=== PATIENT | female | born 1990 | race American Indian/Alaskan Native ===

== ENCOUNTER 2018-04-23 18:47 | Emergency (ER) | payer MEDICAID ==
--- NOTE | 2018-04-23 20:47 | Emergency Department Report ---
Chief Complaint: Abdominal Pain Stated Complaint: ABD PAIN/EXTREME Time Seen by Provider: 04/23/18 20:45 - HPI History of Present Illness: suprapubic abdominal cramping (+) nausea clear vaginal discharge no vomiting, no urinary sx pt is sexually active, states she uses protection MSE screening note: Focused history and physical exam performed. Due to findings the following was ordered: UA, wet prep, G/C urine ED Disposition for MSE Condition: Stable Instructions: Abdominal Pain (ED)
--- NOTE | 2018-04-23 22:14 | Emergency Department Report ---
ED Female HPI - General Chief complaint: Abdominal Pain Stated complaint: ABD PAIN/EXTREME Time Seen by Provider: 04/23/18 20:45 Source: patient Mode of arrival: Ambulatory Limitations: No Limitations - History of Present Illness Initial comments: This is a 27-year-old Nepalese female who presents with abdominal cramping in vaginal discharge for several weeks. Patient reports discharge is clear and increased in amount over the past few days. She also reports some nausea without vomiting. Her last menstrual period was 03/27/2018, a 0. She denies urinary frequency, urgency, dysuria, pelvic pain, low back pain, or vaginal bleeding. MD Complaint: vaginal discharge, pelvic pain Location: suprapubic Radiation: non-radiating Severity: moderate Severity scale (0 -10): 3 Quality: cramping Consistency: intermittent Improves with: none Worsens with: none Are you Now?: No Last Menstrual Period: 03/27/18 EDC: 01/01/19 Associated Symptoms: vaginal discharge, abdominal pain. denies: vaginal bleeding, nausea/vomiting, fever/chills, headaches, loss of appetite, dysuria, hematuria, rash, seizure, shortness of breath, syncope, weakness - Related Data Sexually active: Yes : 3 Para: 3 A: 0 Previous Rx's Medication Instructions Recorded Last Taken Type Famotidine [Pepcid] 20 mg PO BID #40 tablet 05/15/15 Unknown Rx Hyoscyamine Subl [Levsin Sl 0.125 0.125 mg SL Q6HR PRN #15 tab 05/15/15 Unknown Rx TAB] Promethazine [Phenergan TAB] 25 mg PO Q6HR PRN #20 tab 05/15/15 Unknown Rx Sulfamethoxazole/Trimethoprim 1 each PO BID #14 tablet 05/15/15 Unknown Rx [Bactrim DS TAB] Sulfamethoxazole/Trimethoprim 1 each PO BID #6 tablet 04/23/18 Unknown Rx [Bactrim DS TAB] metroNIDAZOLE [Metronidazole] 500 mg PO BID #14 tablet 04/23/18 Unknown Rx Allergies Allergy/AdvReac Type Severity Reaction Status Date / Time No Known Allergies Allergy Verified 04/23/18 18:50 ED Review of Systems ROS: Stated complaint: ABD PAIN/EXTREME Other details as noted in HPI Constitutional: denies: chills, fever Respiratory: denies: cough, shortness of breath, wheezing Cardiovascular: denies: chest pain, palpitations Gastrointestinal: abdominal pain, nausea. denies: vomiting, diarrhea Genitourinary: discharge. denies: urgency, dysuria Musculoskeletal: denies: back pain, joint swelling, arthralgia Skin: denies: rash, lesions Neurological: denies: headache, weakness, paresthesias Psychiatric: denies: anxiety, depression ED Past Medical Hx - Past Medical History Previous Medical History?: No - Surgical History Past Surgical History?: No - Social History Smoking Status: Never Smoker Substance Use Type: None - Medications Home Medications: Home Medications Medication Instructions Recorded Confirmed Last Taken Type Famotidine [Pepcid] 20 mg PO BID #40 tablet 05/15/15 Unknown Rx Hyoscyamine Subl [Levsin Sl 0.125 0.125 mg SL Q6HR PRN #15 tab 05/15/15 Unknown Rx TAB] Promethazine [Phenergan TAB] 25 mg PO Q6HR PRN #20 tab 05/15/15 Unknown Rx Sulfamethoxazole/Trimethoprim 1 each PO BID #14 tablet 05/15/15 Unknown Rx [Bactrim DS TAB] Sulfamethoxazole/Trimethoprim 1 each PO BID #6 tablet 04/23/18 Unknown Rx [Bactrim DS TAB] metroNIDAZOLE [Metronidazole] 500 mg PO BID #14 tablet 04/23/18 Unknown Rx ED Physical Exam - General Limitations: No Limitations General appearance: alert, in no apparent distress - Respiratory Respiratory exam: Present: normal lung sounds bilaterally. Absent: respiratory distress - Cardiovascular Cardiovascular Exam: Present: regular rate, normal rhythm. Absent: systolic murmur, diastolic murmur, rubs, gallop - GI/Abdominal GI/Abdominal exam: Present: soft, normal bowel sounds. Absent: distended, tenderness, guarding, rebound, rigid, organomegaly, mass, bruit, pulsatile mass - External exam: Present: normal external exam Speculum exam: Present: vaginal discharge (malodorous yellowish discharge). Absent: erythema, cervical discharge, vaginal bleeding, foreign body, tissue, laceration Bi-manual exam: Present: normal bi-manual exam - Back Exam Back exam: Absent: CVA tenderness (R), CVA tenderness (L) - Neurological Exam Neurological exam: Present: alert, oriented X3 - Psychiatric Psychiatric exam: Present: normal affect, normal mood - Skin Skin exam: Present: warm, dry, intact, normal color. Absent: rash ED Course Vital Signs 04/23/18 20:49 Temperature 98.1 F Pulse Rate 69 Respiratory 14 Rate Blood Pressure 120/54 O2 Sat by Pulse 100 Oximetry ED Medical Decision Making - Lab Data Lab Results 04/23/18 Range/Units 22:08 Urine Color Roxy (Yellow) Urine Turbidity Slightly-cloudy (Clear) Urine pH 6.0 (5.0-7.0) Ur Specific [place] 1.030 (1.003-1.030) Urine Protein 30 mg/dl (Negative) mg/dL Urine Glucose (UA) Neg (Negative) mg/dL Urine Ketones Tr (Negative) mg/dL Urine Blood Neg (Negative) Urine Nitrite Pos (Negative) Urine Bilirubin Neg (Negative) Urine Urobilinogen < 2.0 (<2.0) mg/dL Ur Leukocyte Esterase Tr (Negative) Urine WBC (Auto) 6.0 (0.0-6.0) /HPF Urine RBC (Auto) 1.0 (0.0-6.0) /HPF U Epithel Cells (Auto) 4.0 (0-13.0) /HPF Urine Bacteria (Auto) 1+ (Negative) /HPF Urine Mucus 3+ /HPF Urine HCG, Qual Negative (Negative) - Medical Decision Making This is a 27-year-old -N[place]alese female who presents with abdominal cramping and vaginal discharge for several weeks. Patient was examined by me. Vitals are stable and in no acute distress. Obtained a urinalysis, urine preg natalia test, wet prep and gonorrhea and chlamydia via pelvic exam. Urine set is negative, urine positive for acute cystitis, wet prep positive for clue cells and negative Trichomonas and yeast. Patient will be treated for bacterial vaginitis and acute cystitis. Start metronidazole and Bactrim. Instructed to follow-up in 3-5 days for pending gonorrhea and chlamydia results. Discharged home in stable condition. Discussed prevention options. F/U with PCP or Health Department. Critical care attestation.: If time is entered above; I have spent that time in minutes in the direct care of this critically ill patient, excluding procedure time. ED Disposition Clinical Impression: Bacterial vaginitis, Vaginal discharge, Pelvic pain Acute cystitis Qualifiers: Hematuria presence: without hematuria Qualified Code(s): N30.00 - Acute cystitis without hematuria Disposition: DC-01 TO HOME OR SELFCARE Is pt being admited?: No Does the pt Need Aspirin: No Condition: Stable Instructions: Abdominal Pain (ED), Bacterial Vaginosis (ED), Urinary Tract Infection in Women (ED) Additional Instructions: Increase fluid intake to 1L to 2L daily. Complete full course of antibiotics as prescribed. Avoid drinking alcohol while taking antibiotics and for 24 hours after completion. Follow up with primary care provider in 2-3 days. Prescriptions: Sulfamethoxazole/Trimethoprim [Bactrim DS TAB] 1 each PO BID #6 tablet metroNIDAZOLE [Metronidazole] 500 mg PO BID #14 tablet Referrals: NEHA SELF MD [Primary Care Provider] - 3-5 Days [facility] [Outside] - 3-5 Days [facility] [Outside] - 3-5 Days Forms: STI Treatment and Prevention Time of Disposition: 23:12
[2018-04-23 22:40] LABS: Bacteria,Urine 1+ /HPF (Negative); Bilirubin,Urine NEG (Negative); Blood,Urine NEG (Negative); Color,Urine Amber (Yellow); Mucus,Urine 3+ /HPF; Urobilinogen,Urine < 2.0 mg/dL (<2.0)
[2018-04-23 22:44] LABS: HCG Qualitative,Urine Negative (Negative)
[2018-04-23 23:27] VITALS: BP 115/70
== END 2018-04-23 23:26 | disposition home or self-care (01) ==
LOC: ED 18:47
DX: N76.0 Acute vaginitis (principal); N30.00 Acute cystitis without hematuria
CPT/HCPCS: 81001; 81025; 87210; 87591

== ENCOUNTER 2020-06-27 14:49 | Emergency (ER) | payer MEDICAID | END 2020-06-28 03:15 | disposition left against medical advice (07) | LOC: ED 14:49 | DX: M54.2 Cervicalgia (principal); Z53.21 Procedure and treatment not carried out due to patient leaving prior to being seen by health care provider ==

== ENCOUNTER 2020-10-20 13:04 | Emergency (ER) | payer SELFPAY ==
[2020-10-20 13:35] VITALS: BP 120/71
--- NOTE | 2020-10-20 15:41 | Emergency Department Report ---
ED Female HPI - General Chief complaint: Abdominal Pain Stated complaint: DISCHARGE, ABDOM PAIN, NO APPETITE Time Seen by Provider: 10/20/20 14:32 Source: patient Mode of arrival: Ambulatory Limitations: No Limitations - History of Present Illness Initial comments: Patient is a 29-year-old female presents emergency room complaints of vaginal discharge that began 2 weeks ago. She states that it is a clear discharge without an odor. She denies any vaginal itching or burning. She states that she is also been suprapubic abdominal pressure. She denies any dysuria, fever, nausea, vomiting, diarrhea, back pain. Patient states that she has not been sexually active in 3 months and denies any concerns for STDs. No past medical history. No allergies to medications. She states her last menstrual cycle was at the beginning of October. - Related Data Previous Rx's Medication Instructions Recorded Last Taken Type Famotidine [Pepcid] 20 mg PO BID #40 tablet 05/15/15 Unknown Rx Hyoscyamine Subl [Levsin Sl 0.125 0.125 mg SL Q6HR PRN #15 tab 05/15/15 Unknown Rx TAB] Promethazine [Phenergan TAB] 25 mg PO Q6HR PRN #20 tab 05/15/15 Unknown Rx Sulfamethoxazole/Trimethoprim 1 each PO BID #14 tablet 05/15/15 Unknown Rx [Bactrim DS TAB] Ondansetron [Zofran Odt] 4 mg PO Q8HR PRN #12 tab.rapdis 04/23/18 Unknown Rx Sulfamethoxazole/Trimethoprim 1 each PO BID #6 tablet 04/23/18 Unknown Rx [Bactrim DS TAB] metroNIDAZOLE [Metronidazole] 500 mg PO BID #14 tablet 04/23/18 Unknown Rx Fluconazole [Diflucan TAB] 150 mg PO QDAY 1 Days #3 tablet 10/20/20 Unknown Rx cephALEXin [Keflex] 500 mg PO BID 7 Days #14 capsule 10/20/20 Unknown Rx metroNIDAZOLE [Flagyl] 500 mg PO BID 7 Days #14 tab 10/20/20 Unknown Rx Allergies Allergy/AdvReac Type Severity Reaction Status Date / Time No Known Allergies Allergy Verified 10/20/20 13:30 ED Review of Systems ROS: Stated complaint: DISCHARGE, ABDOM PAIN, NO APPETITE Other details as noted in HPI Comment: All other systems reviewed and negative ED Past Medical Hx - Past Medical History Previous Medical History?: No - Surgical History Past Surgical History?: No - Social History Smoking Status: Never Smoker Substance Use Type: None - Medications Home Medications: Home Medications Medication Instructions Recorded Confirmed Last Taken Type Famotidine [Pepcid] 20 mg PO BID #40 tablet 05/15/15 Unknown Rx Hyoscyamine Subl [Levsin Sl 0.125 0.125 mg SL Q6HR PRN #15 tab 05/15/15 Unknown Rx TAB] Promethazine [Phenergan TAB] 25 mg PO Q6HR PRN #20 tab 05/15/15 Unknown Rx Sulfamethoxazole/Trimethoprim 1 each PO BID #14 tablet 05/15/15 Unknown Rx [Bactrim DS TAB] Ondansetron [Zofran Odt] 4 mg PO Q8HR PRN #12 tab.rapdis 04/23/18 Unknown Rx Sulfamethoxazole/Trimethoprim 1 each PO BID #6 tablet 04/23/18 Unknown Rx [Bactrim DS TAB] metroNIDAZOLE [Metronidazole] 500 mg PO BID #14 tablet 04/23/18 Unknown Rx Fluconazole [Diflucan TAB] 150 mg PO QDAY 1 Days #3 tablet 10/20/20 Unknown Rx cephALEXin [Keflex] 500 mg PO BID 7 Days #14 capsule 10/20/20 Unknown Rx metroNIDAZOLE [Flagyl] 500 mg PO BID 7 Days #14 tab 10/20/20 Unknown Rx ED Physical Exam - General Limitations: No Limitations General appearance: alert, in no apparent distress - Head Head exam: Present: atraumatic, normocephalic - Eye Eye exam: Present: normal appearance - ENT ENT exam: Present: mucous membranes moist - Respiratory Respiratory exam: Present: normal lung sounds bilaterally. Absent: respiratory distress, wheezes, rales, rhonchi, stridor, chest wall tenderness, accessory muscle use, decreased breath sounds, prolonged expiratory - Cardiovascular Cardiovascular Exam: Present: regular rate, normal rhythm, normal heart sounds. Absent: systolic murmur, diastolic murmur, rubs, gallop - GI/Abdominal GI/Abdominal exam: Present: soft, tenderness (mild suprapubic ), normal bowel sounds. Absent: distended, guarding, rebound, rigid - Neurological Exam Neurological exam: Present: alert, oriented X3 - Psychiatric Psychiatric exam: Present: normal affect, normal mood - Skin Skin exam: Present: warm, dry, intact ED Course Vital Signs 10/20/20 13:29 Temperature 98.1 F Respiratory 19 Rate Blood Pressure 120/71 ED Medical Decision Making - Lab Data Lab Results 10/20/20 Range/Units 15:51 Urine Color Yellow (Yellow) Urine Turbidity Clear (Clear) Urine pH 6.0 (5.0-7.0) Ur Specific [place] 1.033 H (1.003-1.030) Urine Protein 30 mg/dl (Negative) mg/dL Urine Glucose (UA) Neg (Negative) mg/dL Urine Ketones 20 (Negative) mg/dL Urine Blood Lg (Negative) Urine Nitrite Neg (Negative) Urine Bilirubin Neg (Negative) Urine Urobilinogen 2.0 (<2.0) mg/dL Ur Leukocyte Esterase Neg (Negative) Urine WBC (Auto) < 1.0 (0.0-6.0) /HPF Urine RBC (Auto) > 182.0 (0.0-6.0) /HPF U Epithel Cells (Auto) 2.0 (0-13.0) /HPF Urine Mucus 3+ /HPF Urine HCG, Qual Negative (Negative) - Medical Decision Making Patient is a 29-year-old female presents emergency room complaints of vaginal discharge that began 2 weeks ago. She states that it is a clear discharge without an odor. She denies any vaginal itching or burning. She states that she is also been suprapubic abdominal pressure. She denies any dysuria, fever, nausea, vomiting, diarrhea, back pain. Patient states that she has not been sexually active in 3 months and denies any concerns for STDs. No past medical history. No allergies to medications. She states her last menstrual cycle was at the beginning of October. On exam patient has mild suprapubic tenderness palpation, no guarding, no rebound, no rigidity, no process, no peritoneal signs. Urine is negative. UA shows many red blood cells. Discussed case with Dr. Vic Cassidy, ER attending who advised could represent hemorrhagic cystitis. Patient will be covered for cystitis and vaginitis. Patient given prescription for medications. Advised patient Please take medication as prescribed. Increase your water intake. Follow-up with your primary care doctor and have your urine retested for clearance of bacteria. Return to emergency room for any new or worsening symptoms. Critical care attestation.: If time is entered above; I have spent that time in minutes in the direct care of this critically ill patient, excluding procedure time. ED Disposition Clinical Impression: Cystitis Vaginitis Qualifiers: Chronicity: acute Qualified Code(s): N76.0 - Acute vaginitis Disposition: HOME / SELF CARE / HOMELESS Is pt being admited?: No Does the pt Need Aspirin: No Condition: Stable Instructions: Hemorrhagic Cystitis, Vaginitis, Abdominal Pain (ED) Additional Instructions: Please take medication as prescribed. Increase your water intake. Follow-up with your primary care doctor and have your urine retested for clearance of bacteria. Return to emergency room for any new or worsening symptoms. Prescriptions: Fluconazole [Diflucan TAB] 150 mg PO QDAY 1 Days #3 tablet metroNIDAZOLE [Flagyl] 500 mg PO BID 7 Days #14 tab cephALEXin [Keflex] 500 mg PO BID 7 Days #14 capsule Referrals: GILDA ROSAS MD [Primary Care Provider] - 2-3 Days LYNN CEE MD [Staff Physician] - 2-3 Days [facility] [Provider Group] - 2-3 Days Time of Disposition: 17:03 Print Language: SETSWANA
[2020-10-20 16:42] LABS: Bilirubin,Urine NEG (Negative); Blood,Urine LG (Negative); Color,Urine Yellow (Yellow); Mucus,Urine 3+ /HPF
[2020-10-20 16:45] LABS: RBC,Urine > 182.0 /HPF (0.0-6.0); WBC,Urine < 1.0 /HPF (0.0-6.0)
[2020-10-20 16:57] LABS: HCG Qualitative,Urine Negative (Negative)
== END 2020-10-20 17:09 | disposition home or self-care (01) ==
LOC: ED 13:04
DX: N30.90 Cystitis, unspecified without hematuria (principal); N76.0 Acute vaginitis; Z79.899 Other long term (current) drug therapy
CPT/HCPCS: 81001; 81025

== ENCOUNTER 2021-05-27 11:27 | Emergency (ER) | payer SELFPAY ==
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
--- NOTE | 2021-05-27 12:22 | XRay Report ---
LEFT RIB SERIES WITH PA CHEST, 3 VIEWS INDICATION / CLINICAL INFORMATION: Left rib pain. COMPARISON: None available. FINDINGS: PA chest is unremarkable. Heart size and pulmonary vascularity are normal. The lungs are well-expande d and clear. No pneumothorax or pleural effusion noted. Left rib series: There is a mildly displaced fracture of the lateral left seventh rib. IMPRESSION: 1. Mildly displaced fracture of the left seventh lateral rib. 2. No acute pulmonary disease. No visible pneumothorax or hemothorax/effusion. Signer Name: Sindi Jimenez MD Signed: 05/27/2021 12:18 PM Workstation Name: [id number]
[2021-05-27 14:00] VITALS: BP 113/78
[2021-05-27] MEDS ORDERED: KETOROLAC 60 MG/2 ML INJ IM ONE (14:00)
[2021-05-27] MEDS ORDERED: KETOROLAC 30 MG/1 ML INJ ONE (14:01)
== END 2021-05-27 14:07 | disposition home or self-care (01) ==
LOC: ED 11:27
DX: S22.32XA Fracture of one rib, left side, initial encounter for closed fracture (principal); Y04.8XXA Assault by other bodily force, initial encounter; Y93.89 Activity, other specified; Y92.89 Other specified places as the place of occurrence of the external cause; Y99.8 Other external cause status; R07.89 Other chest pain
CPT/HCPCS: 71101; 96372; 99283; J1885